=== PATIENT | male | born 1990 | race Caucasian/White ===

== ENCOUNTER 2017-11-28 07:27 | Day surgery (SDC) | payer BC ==
[~2017-11-28 07:27] MED LIST: CEFAZOLIN 1 GM INJ; SUCCINYLCHOLINE CHLORIDE 100 MG/5 ML SYG IV
[2017-11-28] MEDS ORDERED: NEOSTIGMINE 3 MG/3 ML SYRINGE (08:56)
[2017-11-28] MEDS ORDERED: LIDOCAINE 2% (SDV) 5 ML INJ (08:56)
[2017-11-28] MEDS ORDERED: GLYCOPYRROLATE 0.4 MG INJ (08:56)
[2017-11-28] MEDS ORDERED: ROCURONIUM 50 MG INJ (08:56)
[2017-11-28] MEDS ORDERED: PROPOFOL 20 ML (08:56)
[2017-11-28] MEDS ORDERED: MIDAZOLAM 1 MG/ML 2 ML INJ (08:57)
[2017-11-28] MEDS ORDERED: DEXAMETHASONE 4 MG/ML 1 ML INJ (08:57)
[2017-11-28] MEDS ORDERED: FENTAnyl 50 MCG/ML VIAL ×3 (08:57→12:14)
[2017-11-28] MEDS ORDERED: ONDANSETRON 4 MG INJ (08:57)
[2017-11-28] MEDS ORDERED: ROPIVACAINE 0.5 % 30 ML VIAL (09:02)
[2017-11-28] MEDS ORDERED: EPHEDrine SULFATE 50 MG/5 ML SYG IV (12:00)
[2017-11-28] MEDS ORDERED: OXYCODONE/ACETAMINOPHEN (5/325) TAB PO (12:00)
[2017-11-28] MEDS ORDERED: FENTAnyl 50 MCG/ML VIAL IV ×2 (12:00)
[2017-11-28] MEDS ORDERED: MIDAZOLAM 1 MG/ML 2 ML INJ IV (12:00)
[2017-11-28] MEDS ORDERED: LABETALOL HCL 20MG INJ IV (12:00)
[2017-11-28] MEDS ORDERED: HYDROmorphONE 1 MG/5 ML IV SYRINGE IV ×3 (12:00)
[2017-11-28] MEDS ORDERED: ONDANSETRON 4 MG INJ IV (12:00)
[2017-11-28] MEDS ORDERED: hydrALAzine 20 MG INJ IV (12:00)
[2017-11-28] MEDS ORDERED: DIPHENHYDRAMINE 50 MG INJ IV (12:00)
[2017-11-28] MEDS ORDERED: morphine (1 MG/ML) 10ML SYRINGE IV ×3 (12:00)
[2017-11-28] MEDS ORDERED: ATROPINE 1 MG/10 ML SYRINGE IV (12:00)
[2017-11-28] MEDS ORDERED: LABETALOL HCL 20MG INJ (13:13)
[2017-11-28] MEDS: POLYMYXIN/BACITRACIN 1L IRRIG IRR (13:19)
[2017-11-28] MEDS ORDERED: FLUMAZENIL 0.5 MG INJ (13:29)
[2017-11-28] MEDS ORDERED: POLYMYXIN/BACITRACIN 1L IRRIG (14:19)
[2017-11-28] MEDS ORDERED: NEOMYC/POLYMYX/BACIT 30 GM OINT (14:19)
[2017-11-28] MEDS ORDERED: POVIDONE IODINE 10% 28.4 GM OINT (14:19)
[2017-11-28] MEDS: ROPIVACAINE 0.5 % 30 ML VIAL (15:54)
[2017-11-28] MEDS ORDERED: MEPERIDINE 25 MG INJ (16:20)
[2017-11-28] MEDS: MEPERIDINE 25 MG INJ IV (16:29)
[2017-11-28] MEDS ORDERED: KETOROLAC 30 MG INJ (16:33)
[2017-11-28] MEDS ORDERED: morphine 2 MG INJ IV (17:00)
[2017-11-28] MEDS: OXYCODONE/ACETAMINOPHEN (5/325) TAB PO (17:14)
[2017-11-28] MEDS: KETOROLAC 30 MG INJ IV (18:14)
== END 2017-11-28 18:47 | disposition home or self-care (01) ==
LOC: SDS 07:27
DX: S83.212D Bucket-handle tear of medial meniscus, current injury, left knee, subsequent encounter (principal); S83.512D Sprain of anterior cruciate ligament of left knee, subsequent encounter; X58.XXXD Exposure to other specified factors, subsequent encounter
CPT/HCPCS: 29881; 82306